=== PATIENT | female | born 1950 | race Caucasian/White ===

== ENCOUNTER 2019-01-27 10:03 | Day surgery (SDC) | payer MEDICARE, OTHER ==
[2019-01-27] MEDS ORDERED: LIDOCAINE 100 MG SYRINGE (11:02)
[2019-01-27] MEDS ORDERED: PROPOFOL 40 ML (11:02)
[2019-01-27] MEDS ORDERED: FENTAnyl 50 MCG/ML VIAL (11:02)
== END 2019-01-27 13:59 | disposition home or self-care (01) ==
LOC: GIL 10:03
DX: K92.1 Melena (principal); K64.8 Other hemorrhoids; K21.9 Gastro-esophageal reflux disease without esophagitis; I10 Essential (primary) hypertension; E78.5 Hyperlipidemia, unspecified
CPT/HCPCS: 43239; 88305